=== PATIENT | female | born 1985 | race African-American/Black ===

== ENCOUNTER 2017-04-05 15:11 | Observation (INO) | payer OTHER ==
[~2017-04-05] VITALS: Ht 167.6 cm; Wt 95.0 kg
[~2017-04-05 15:11] MED LIST changes: -ADVIL MIGRAINE200 MG PO; -ALLEGRA 60MG TA60 MG PO; -ALPHA LIPOIC A200 M2 PO; -B-12 100 MCG; -MULTIPLE VITAMI1 TA5 PO; -OMEGA-3 FISH1000 MG PO; -PREMARIN 0.9MG0.9 MG PO; -PROBIOTIC ACID1 EAC3 PO; -VITAMIN B-6100 MG PO; -VITAMIN D31000 IU PO
[2017-04-05] MEDS ORDERED: OMEGA-3 FISH1000 MG PO (15:55)
[2017-04-05] MEDS ORDERED: MULTIPLE VITAMI1 TA5 PO (15:55)
[2017-04-05] MEDS ORDERED: ALLEGRA 60MG TA60 MG PO (15:55)
[2017-04-05] MEDS ORDERED: VITAMIN B-6100 MG PO (15:58)
[2017-04-05] MEDS ORDERED: ALPHA LIPOIC A200 M2 PO (15:59)
[2017-04-05] MEDS ORDERED: B-12 100 MCG (15:59)
[2017-04-05] MEDS ORDERED: VITAMIN D31000 IU PO (16:00)
[2017-04-05] MEDS ORDERED: PREMARIN 0.9MG0.9 MG PO (16:00)
[2017-04-05] MEDS ORDERED: PROBIOTIC ACID1 EAC3 PO (16:13)
[2017-04-05 17:27] LABS: BASO % 0.3 % (0.0-2.0); EOS # 0.4 (0.0-0.7); EOS % 6.7 % (0-4.0); GRAN # 2.3 (1.4-6.5); GRAN % 38.4 % (42.2-75.2); HEMATOCRIT 37.7 % (37.0-47.0); HEMOGLOBIN 12.5 g/dl (12.5-16.0); LYMPH # 2.7 (1.2-3.4); LYMPH % 45.7 % (20.0-51.0); MEAN CELL VOLUME 89 fl (80.0-100.0); MEAN CORPUSCULAR HEMOGLOBIN 30 pg (27.0-31.0); MEAN CORPUSCULAR HGB CONC 33 g/dl (33.0-37.0); MONO # 0.5 (0.1-0.6); MONO % 8.6 % (1.7-9.3); PLATELET COUNT 305 K/mm3 (130-400); RED BLOOD COUNT 4.24 M/mm3 (4.10-5.30); REDCELL DISTRIBUTION WIDTH-CV 12.7 % (11.5-14.5)
[2017-04-05] MEDS ORDERED: ADVIL MIGRAINE200 MG PO (17:37)
[2017-04-05 17:57] VITALS: BP 175/102; PULSE 72; TEMP 97.6
[2017-04-05 18:31] LABS: ADJUSTED CALCIUM 8.8 mg/dL (8.4-10.2); ALBUMIN 4.3 gm/dL (3.5-5.0); BILIRUBIN,TOTAL 0.6 mg/dL (0.0-1.0); C-REACTIVE PROTEIN 0.6 mg/dL (0.0-0.9); CREATININE, serum 0.8 mg/dL (0.52-1.25); POTASSIUM 3.6 mmol/L (3.4-5.0); TOTAL PROTEIN 7.8 gm/dL (6.4-8.2)
== END 2017-04-05 19:55 | disposition other institution (70) ==
LOC: COL.ER 15:11 → MEDICAL 16:37
PROVIDERS: Emergency Medicine
DX: D32.0 Benign neoplasm of cerebral meninges (principal); H49.22 Sixth [abducent] nerve palsy, left eye; H53.8 Other visual disturbances; H53.2 Diplopia; F32.9 Major depressive disorder, single episode, unspecified; F17.290 Nicotine dependence, other tobacco product, uncomplicated; Z86.718 Personal history of other venous thrombosis and embolism; Z90.710 Acquired absence of both cervix and uterus; Z82.49 Family history of ischemic heart disease and other diseases of the circulatory system
CPT/HCPCS: G0378

== ENCOUNTER → 2017-04-05 | Outpatient (CLI) | payer OTHER ==
[~2017-04-05] MED LIST: ADVIL MIGRAINE200 MG PO; ALLEGRA 60MG TA60 MG PO; ALPHA LIPOIC A200 M2 PO; B-12 100 MCG; DIFLUCAN150 MG PO; MULTIPLE VITAMI1 CAP PO; MULTIPLE VITAMI1 TA5 PO; OMEGA-3 FISH1000 MG PO; PREMARIN 0.9MG0.9 MG PO; PROBIOTIC ACID1 EAC3 PO; PROZAC 20MG20 MG PO; VALTREX1 GM PO; VITAMIN B-6100 MG PO; VITAMIN D31000 IU PO
== END ==
LOC: COL.RAD 13:02
DX: R51 Headache (principal)
CPT/HCPCS: A9585

== ENCOUNTER 2017-04-13 07:39 | Outpatient (CLI) | payer OTHER ==
[~2017-04-13] VITALS: Ht 167.6 cm; Wt 90.9 kg
[2017-04-13] VITALS (8 sets, daily range): BP systolic 136–147; BP diastolic 97–113; PULSE 68–83
[~2017-04-13 07:39] MED LIST changes: +ADVIL MIGRAINE200 MG PO; +ALLEGRA 60MG TA60 MG PO; +ALPHA LIPOIC A200 M2 PO; +B-12 100 MCG; +MULTIPLE VITAMI1 TA5 PO; +OMEGA-3 FISH1000 MG PO; +PREMARIN 0.9MG0.9 MG PO; +PROBIOTIC ACID1 EAC3 PO; +VITAMIN B-6100 MG PO; +VITAMIN D31000 IU PO
[2017-04-13 13:51] LABS: CEREBROSPINAL TUBE #4; CSF APPEARANCE CLEAR; CSF COLOR COLORLESS
[2017-04-15 13:19] LABS: CSF IGG/ALBUMIN 0.18 (<=0.21)
[2017-04-15 14:28] LABS: CSF SYNTHESIS RATE 4.96 mg/24 h (<=12); CSF-IGG INDEX 0.58 (<=0.85); IGG/ALBUMIN SERUM 0.31 (<=0.40)
== END 2017-04-13 10:34 | disposition home or self-care (01) ==
LOC: COL.RAD 07:39
PROVIDERS: Psychiatry & Neurology Neurology
DX: H53.2 Diplopia (principal); H53.8 Other visual disturbances